=== PATIENT | male | born 1995 | race Two or more races ===

== ENCOUNTER → 2019-11-11 | Outpatient (CLI) | payer BC ==
[2019-11-12 05:06] LABS: RPR Non Reactive (Non Reactive)
[2019-11-14 14:10] LABS: Hepatitis A Ab IgM Negative; Hepatitis B Core IgM Negative
[2019-11-14 14:11] LABS: Hepatitis B Surface Antigen Negative (Negative); Hepatitis C Antibody Negative (Negative)
== END | disposition home or self-care (01) ==
LOC: LAB 13:16
PROVIDERS: ATTEND Nurse Practitioner Family
DX: R30.0 Dysuria (principal); Z11.3 Encounter for screening for infections with a predominantly sexual mode of transmission; Z72.51 High risk heterosexual behavior
CPT/HCPCS: 36415; 80074; 86592; 86703